=== PATIENT | male | born 1940 | race Caucasian/White ===

== ENCOUNTER 2021-02-17 12:51 | Inpatient (IN) | payer OTHER ==
[2021-02-17 13:51] LABS: BASO % 0.7 % (0-2.0); EOS % 2.5 % (0-4.5); HEMATOCRIT 23.3 % (35.4-49); LYMPH % 22.8 % (8-40); MCH 33.7 pg (25.7-33.7); MCHC 34.2 g/dl (32.0-35.9); MEAN CELL VOLUME 98.5 fl (80-96); MEAN PLT VOLUME 8.7 fl (7.5-11.1); MONO % 12.1 % (3.8-10.2); NEUT % 61.9 % (42.8-82.8); PLATELET COUNT 135 10^3/uL (134-434); RBC 2.37 M/mm3 (4.00-5.60); WHITE BLOOD COUNT 4.1 K/mm3 (4.0-10.0)
[2021-02-17 13:58] LABS: INR 0.94 (0.83-1.09); PROTHROMBIN TIME (PATIENT) 11.4 SEC (9.7-13.0)
[2021-02-17 14:01] LABS: ACTIVATED PTT 34.6 SECONDS (25.2-36.5)
[2021-02-17 14:13] LABS: CHLORIDE 107 mmol/L (98-107); SODIUM 136 mmol/L (136-145)
[2021-02-17 14:15] LABS: CALCIUM 8.6 mg/dL (8.5-10.1)
[2021-02-17 14:17] LABS: ALBUMIN 3.1 g/dl (3.4-5.0); BLOOD UREA NITROGEN 53.2 mg/dL (7-18); CO2 24 mmol/L (21-32)
[2021-02-17 14:19] LABS: CREATININE 1.6 mg/dL (0.55-1.3); GLUCOSE,RANDOM 84 mg/dL (74-106); SGOT/AST 26 U/L (15-37); SGPT/ALT 26 U/L (13-61)
[2021-02-17 14:20] LABS: BILIRUBIN,TOTAL 0.4 mg/dL (0.2-1)
[2021-02-17 14:21] LABS: TOT PROT 7.4 g/dl (6.4-8.2)
[2021-02-17 14:22] LABS: ALK PHOS 64 U/L (45-117)
[2021-02-17 14:26] LABS: ANION GAP 5 MMOL/L (8-16)
[2021-02-17] MEDS ORDERED: INSULIN REGULAR HUMAN 100 UNITS/ML *VIAL IVPUSH ONE (14:30)
[2021-02-17] MEDS ORDERED: CALCIUM GLUCONATE 10% - 1,000 MG/10 ML VIAL IVPUSH ONE (14:31)
[2021-02-17] MEDS ORDERED: DEXTROSE 50%-WATER - 25 GM/50 ML VIAL IVPUSH ONE ×2 (14:32→16:53)
[2021-02-17] MEDS ORDERED: SODIUM CHLORIDE 0.9% 1000 ML INFUS.BAG IV ONE (14:44)
[2021-02-17] MEDS ORDERED: DEXTROSE 50%-WATER 25 GM/50 ML DISP.SYRIN ONE ×2 (15:15→17:22)
[2021-02-17] MEDS: DEXTROSE 5%-0.45% SALINE 1,000 ML IV SCH (16:43)
[2021-02-17 18:45] LABS: HEMATOCRIT 24.1 % (35.4-49); HEMOGLOBIN 8.1 GM/dL (11.7-16.9); MCH 33.2 pg (25.7-33.7); MCHC 33.5 g/dl (32.0-35.9); MEAN CELL VOLUME 99.3 fl (80-96); MEAN PLT VOLUME 8.3 fl (7.5-11.1); PLATELET COUNT 122 10^3/uL (134-434); RBC 2.43 M/mm3 (4.00-5.60); RDW 16.8 % (11.9-15.9); WHITE BLOOD COUNT 6.1 K/mm3 (4.0-10.0)
[2021-02-17 20:33] LABS: BLOOD UREA NITROGEN 52.1 mg/dL (7-18); CALCIUM 8.2 mg/dL (8.5-10.1)
[2021-02-17 20:36] LABS: CREATININE 1.5 mg/dL (0.55-1.3)
[2021-02-17] MEDS ORDERED: ATORVASTATIN CA 40 MG TABLET (FP) ONE (22:42)
[2021-02-17] MEDS: ATORVASTATIN CA 40 MG TABLET (FP) PO SCH (22:45)
[2021-02-18 05:51] LABS: BASO % 0.8 % (0-2.0); EOS % 5.3 % (0-4.5); HEMATOCRIT 25.7 % (35.4-49); HEMOGLOBIN 8.8 GM/dL (11.7-16.9); LYMPH % 33.3 % (8-40); MCH 33.6 pg (25.7-33.7); MCHC 34.1 g/dl (32.0-35.9); MEAN CELL VOLUME 98.5 fl (80-96); MEAN PLT VOLUME 8.5 fl (7.5-11.1); MONO % 13.6 % (3.8-10.2); PLATELET COUNT 136 10^3/uL (134-434); RBC 2.61 M/mm3 (4.00-5.60); WHITE BLOOD COUNT 3.7 K/mm3 (4.0-10.0)
[2021-02-18 06:14] LABS: BLOOD UREA NITROGEN 38.8 mg/dL (7-18); CALCIUM 8.7 mg/dL (8.5-10.1)
[2021-02-18 06:15] LABS: MAGNESIUM 1.7 mg/dL (1.8-2.4)
[2021-02-18 06:18] LABS: CREATININE 1.3 mg/dL (0.55-1.3)
[2021-02-18 06:19] LABS: BILIRUBIN,TOTAL 0.6 mg/dL (0.2-1); TOT PROT 7.2 g/dl (6.4-8.2)
[2021-02-18 06:23] LABS: N-TERMINAL BNP 8120.3 pg/ml (5-450)
[2021-02-18] MEDS ORDERED: ATENOLOL 25 MG TABLET (FP) ONE (10:25)
[2021-02-18] MEDS: ATENOLOL 25 MG TABLET (FP) PO SCH (10:39)
[2021-02-18] MEDS ORDERED: SODIUM ZIRCONIUM CYCLOSILICATE (LOKELMA) 5 GM PACKET PO SCH (15:15)
[2021-02-18] MEDS: ATORVASTATIN CA 40 MG TABLET (FP) PO SCH (21:21)
[2021-02-18] MEDS: DEXTROSE 5%-0.45% SALINE 1,000 ML IV SCH (21:23)
[2021-02-18 22:05] VITALS: BMI 19.6
[2021-02-19] MEDS: ATENOLOL 25 MG TABLET (FP) PO SCH (09:34)
[2021-02-19 09:52] LABS: BASO % 1.1 % (0-2.0); EOS % 7.4 % (0-4.5); HEMATOCRIT 25.6 % (35.4-49); HEMOGLOBIN 8.6 GM/dL (11.7-16.9); LYMPH % 28.7 % (8-40); MCH 33.6 pg (25.7-33.7); MCHC 33.7 g/dl (32.0-35.9); MEAN CELL VOLUME 99.8 fl (80-96); MEAN PLT VOLUME 8.5 fl (7.5-11.1); MONO % 11.4 % (3.8-10.2); NEUT % 51.4 % (42.8-82.8); PLATELET COUNT 129 10^3/uL (134-434); RBC 2.56 M/mm3 (4.00-5.60); WHITE BLOOD COUNT 4.3 K/mm3 (4.0-10.0)
[2021-02-19 10:25] LABS: ALBUMIN 2.9 g/dl (3.4-5.0); BLOOD UREA NITROGEN 32.4 mg/dL (7-18)
[2021-02-19 10:26] LABS: CALCIUM 8.7 mg/dL (8.5-10.1)
[2021-02-19 10:30] LABS: CREATININE 1.3 mg/dL (0.55-1.3)
[2021-02-19 10:31] LABS: BILIRUBIN,TOTAL 0.7 mg/dL (0.2-1); TOT PROT 6.8 g/dl (6.4-8.2)
[2021-02-19] MEDS: DEXTROSE 5%-0.45% SALINE 1,000 ML IV SCH (21:51)
[2021-02-19] MEDS: ATORVASTATIN CA 40 MG TABLET (FP) PO SCH (21:51)
[2021-02-20] MEDS: DEXTROSE 5%-0.45% SALINE 1,000 ML IV SCH (01:54)
[2021-02-20 07:32] LABS: BASO % 0.8 % (0-2.0); EOS % 5.9 % (0-4.5); HEMATOCRIT 23.5 % (35.4-49); HEMOGLOBIN 8.2 GM/dL (11.7-16.9); LYMPH % 26.5 % (8-40); MCH 33.8 pg (25.7-33.7); MCHC 34.8 g/dl (32.0-35.9); MEAN CELL VOLUME 97.2 fl (80-96); MEAN PLT VOLUME 8.5 fl (7.5-11.1); MONO % 13.1 % (3.8-10.2); NEUT % 53.7 % (42.8-82.8); PLATELET COUNT 132 10^3/uL (134-434); RBC 2.42 M/mm3 (4.00-5.60); RDW 16.6 % (11.9-15.9); WHITE BLOOD COUNT 3.8 K/mm3 (4.0-10.0)
[2021-02-20] MEDS: ATENOLOL 25 MG TABLET (FP) PO SCH (09:58)
[2021-02-20 11:07] LABS: CALCIUM 8.5 mg/dL (8.5-10.1)
[2021-02-20 11:08] LABS: BLOOD UREA NITROGEN 36.9 mg/dL (7-18)
[2021-02-20 11:12] LABS: CREATININE 1.3 mg/dL (0.55-1.3)
[2021-02-20] MEDS: SODIUM ZIRCONIUM CYCLOSILICATE (LOKELMA) 5 GM PACKET PO SCH (11:30)
[2021-02-20] MEDS: ATORVASTATIN CA 40 MG TABLET (FP) PO SCH (21:43)
[2021-02-21 07:33] LABS: BASO % 0.8 % (0-2.0); EOS % 5.9 % (0-4.5); HEMATOCRIT 22.9 % (35.4-49); HEMOGLOBIN 7.7 GM/dL (11.7-16.9); LYMPH % 31.3 % (8-40); MCH 32.9 pg (25.7-33.7); MCHC 33.6 g/dl (32.0-35.9); MEAN CELL VOLUME 97.7 fl (80-96); MEAN PLT VOLUME 8.3 fl (7.5-11.1); MONO % 14.7 % (3.8-10.2); NEUT % 47.3 % (42.8-82.8); PLATELET COUNT 122 10^3/uL (134-434); RBC 2.34 M/mm3 (4.00-5.60); RDW 16.5 % (11.9-15.9)
[2021-02-21 07:53] LABS: ALBUMIN 2.7 g/dl (3.4-5.0); BLOOD UREA NITROGEN 42.4 mg/dL (7-18); CALCIUM 8.3 mg/dL (8.5-10.1)
[2021-02-21 07:56] LABS: CREATININE 1.4 mg/dL (0.55-1.3)
[2021-02-21 08:01] LABS: BILIRUBIN,TOTAL 0.4 mg/dL (0.2-1); TOT PROT 6.2 g/dl (6.4-8.2)
[2021-02-21] MEDS: ATENOLOL 25 MG TABLET (FP) PO SCH (12:46)
[2021-02-21] MEDS: SODIUM ZIRCONIUM CYCLOSILICATE (LOKELMA) 5 GM PACKET PO SCH (12:56)
[2021-02-21] MEDS ORDERED: PT OWN MED DRAWER 7, Y5N ONE (17:37)
[2021-02-21] MEDS: DEXTROSE 5%-0.45% SALINE 1,000 ML IV SCH (18:14)
[2021-02-21] MEDS: ATORVASTATIN CA 40 MG TABLET (FP) PO SCH (21:27)
[2021-02-22 08:11] LABS: CARCINOEMBRYONIC ANTIGEN 3.1 ng/mL (0.0-4.7)
[2021-02-22 08:11] LABS: BASO % 0.9 % (0-2.0); EOS % 7.1 % (0-4.5); HEMATOCRIT 27.2 % (35.4-49); HEMOGLOBIN 9.4 GM/dL (11.7-16.9); MCH 33.1 pg (25.7-33.7); MCHC 34.5 g/dl (32.0-35.9); MEAN CELL VOLUME 95.9 fl (80-96); MEAN PLT VOLUME 8.6 fl (7.5-11.1); MONO % 13.5 % (3.8-10.2); NEUT % 48.5 % (42.8-82.8); PLATELET COUNT 137 10^3/uL (134-434); RBC 2.84 M/mm3 (4.00-5.60); RDW 17.9 % (11.9-15.9)
[2021-02-22 08:23] LABS: ALBUMIN 2.8 g/dl (3.4-5.0); BLOOD UREA NITROGEN 39.3 mg/dL (7-18); CALCIUM 8.4 mg/dL (8.5-10.1)
[2021-02-22 08:26] LABS: CREATININE 1.2 mg/dL (0.55-1.3)
[2021-02-22 08:28] LABS: BILIRUBIN,TOTAL 0.7 mg/dL (0.2-1); TOT PROT 6.6 g/dl (6.4-8.2)
[2021-02-22] MEDS: SODIUM ZIRCONIUM CYCLOSILICATE (LOKELMA) 5 GM PACKET PO SCH ×2 (10:34→13:56)
[2021-02-22] MEDS: ATENOLOL 25 MG TABLET (FP) PO SCH (13:55)
[2021-02-22] MEDS ORDERED: POLYETHYLENE GLYCOL 3350 119 GM BTL PO SCH (14:00)
[2021-02-22] MEDS: DEXTROSE 5%-0.45% SALINE 1,000 ML IV SCH (15:07)
[2021-02-22] MEDS: POLYETHYLENE GLYCOL (HEALTHYLAX) 3350 17 GM PACKET PO SCH ×2 (15:44→22:22)
[2021-02-22] MEDS: ATORVASTATIN CA 40 MG TABLET (FP) PO SCH (22:24)
[2021-02-23] MEDS: DEXTROSE 5%-0.45% SALINE 1,000 ML IV SCH ×2 (03:51→17:40)
[2021-02-23] MEDS: POLYETHYLENE GLYCOL (HEALTHYLAX) 3350 17 GM PACKET PO SCH ×5 (05:54→21:52)
[2021-02-23] MEDS ORDERED: MAGNESIUM CITRATE 300 ML BOTTLE PO ONE (09:00)
[2021-02-23] MEDS: SODIUM ZIRCONIUM CYCLOSILICATE (LOKELMA) 5 GM PACKET PO SCH (09:08)
[2021-02-23] MEDS: ATENOLOL 25 MG TABLET (FP) PO SCH (09:08)
[2021-02-23] MEDS ORDERED: BISACODYL 5 MG TABLET.DR (FP) PO ONE (18:00)
[2021-02-23] MEDS: ATORVASTATIN CA 40 MG TABLET (FP) PO SCH (21:52)
[2021-02-24] MEDS: POLYETHYLENE GLYCOL (HEALTHYLAX) 3350 17 GM PACKET PO SCH ×3 (05:55→22:29)
[2021-02-24 08:34] LABS: BASO % 0.6 % (0-2.0); EOS % 5.9 % (0-4.5); HEMATOCRIT 28.2 % (35.4-49); HEMOGLOBIN 9.7 GM/dL (11.7-16.9); LYMPH % 25.4 % (8-40); MCH 33.1 pg (25.7-33.7); MCHC 34.5 g/dl (32.0-35.9); MEAN CELL VOLUME 95.9 fl (80-96); MEAN PLT VOLUME 8.7 fl (7.5-11.1); MONO % 13.1 % (3.8-10.2); PLATELET COUNT 129 10^3/uL (134-434); RBC 2.94 M/mm3 (4.00-5.60); RDW 17.3 % (11.9-15.9); WHITE BLOOD COUNT 4.2 K/mm3 (4.0-10.0)
[2021-02-24 08:47] LABS: CALCIUM 8.2 mg/dL (8.5-10.1)
[2021-02-24 08:49] LABS: ALBUMIN 2.8 g/dl (3.4-5.0); BLOOD UREA NITROGEN 26.3 mg/dL (7-18)
[2021-02-24 08:52] LABS: CREATININE 1.1 mg/dL (0.55-1.3)
[2021-02-24 08:53] LABS: BILIRUBIN,TOTAL 0.4 mg/dL (0.2-1); TOT PROT 6.5 g/dl (6.4-8.2)
[2021-02-24] MEDS ORDERED: PEG 3350/NA SULF BICARB CL/KCL 4000 ML SOLN.RECON PO ONE (09:00)
[2021-02-24] MEDS: ATENOLOL 25 MG TABLET (FP) PO SCH (09:26)
[2021-02-24] MEDS: SODIUM ZIRCONIUM CYCLOSILICATE (LOKELMA) 5 GM PACKET PO SCH (09:28)
[2021-02-24] MEDS: DEXTROSE 5%-0.45% SALINE 1,000 ML IV SCH (14:53)
[2021-02-24] MEDS ORDERED: MAGNESIUM CITRATE 300 ML BOTTLE PO ONE (18:00)
[2021-02-24] MEDS ORDERED: BISACODYL 5 MG TABLET.DR (FP) PO ONE (20:00)
[2021-02-24] MEDS: ATORVASTATIN CA 40 MG TABLET (FP) PO SCH (22:29)
[2021-02-25] MEDS ORDERED: MAGNESIUM CITRATE 300 ML BOTTLE PO ONE (02:00)
[2021-02-25] MEDS: POLYETHYLENE GLYCOL (HEALTHYLAX) 3350 17 GM PACKET PO SCH ×3 (05:40→22:23)
[2021-02-25] MEDS: SODIUM ZIRCONIUM CYCLOSILICATE (LOKELMA) 5 GM PACKET PO SCH (09:13)
[2021-02-25] MEDS: ATENOLOL 25 MG TABLET (FP) PO SCH (09:13)
[2021-02-25] MEDS: DEXTROSE 5%-0.45% SALINE 1,000 ML IV SCH (15:20)
[2021-02-25] MEDS: ATORVASTATIN CA 40 MG TABLET (FP) PO SCH (22:24)
[2021-02-26] MEDS: POLYETHYLENE GLYCOL (HEALTHYLAX) 3350 17 GM PACKET PO SCH ×3 (06:06→22:31)
[2021-02-26 08:25] LABS: HEMATOCRIT 29.7 % (35.4-49); HEMOGLOBIN 10.4 GM/dL (11.7-16.9); MCH 33.5 pg (25.7-33.7); MCHC 34.9 g/dl (32.0-35.9); MEAN CELL VOLUME 95.9 fl (80-96); MEAN PLT VOLUME 8.7 fl (7.5-11.1); PLATELET COUNT 139 10^3/uL (134-434); RDW 16.9 % (11.9-15.9); WHITE BLOOD COUNT 5.2 K/mm3 (4.0-10.0)
[2021-02-26] MEDS: ATENOLOL 25 MG TABLET (FP) PO SCH (09:12)
[2021-02-26] MEDS: SODIUM ZIRCONIUM CYCLOSILICATE (LOKELMA) 5 GM PACKET PO SCH (09:12)
[2021-02-26] MEDS: DEXTROSE 5%-0.45% SALINE 1,000 ML IV SCH (15:44)
[2021-02-26] MEDS: ATORVASTATIN CA 40 MG TABLET (FP) PO SCH (22:32)
[2021-02-27] MEDS: POLYETHYLENE GLYCOL (HEALTHYLAX) 3350 17 GM PACKET PO SCH ×2 (06:00→13:41)
[2021-02-27] MEDS: ATENOLOL 25 MG TABLET (FP) PO SCH (09:18)
[2021-02-27] MEDS: SODIUM ZIRCONIUM CYCLOSILICATE (LOKELMA) 5 GM PACKET PO SCH (09:18)
[2021-02-27 12:40] LABS: BLOOD UREA NITROGEN 24.3 mg/dL (7-18); CALCIUM 8.7 mg/dL (8.5-10.1)
[2021-02-27 12:44] LABS: CREATININE 1.1 mg/dL (0.55-1.3)
[2021-02-27 19:16] VITALS: TEMP 98.2
[2021-02-27 20:24] VITALS: BP 105/42; PULSE 59
== END 2021-02-27 22:13 | DRG 378 ==
LOC: JER 12:51 → JERBED 14:32 → J4W 02-18 20:56
PROVIDERS: ADMIT Family Medicine; ATTEND Family Medicine
PROC: 30233N1 Transfusion of Nonautologous Red Blood Cells into Peripheral Vein, Percutaneous Approach (ICD-10-PCS; 2021-02-21)
PROC: 0DB98ZX Excision of Duodenum, Via Natural or Artificial Opening Endoscopic, Diagnostic (ICD-10-PCS; 2021-02-22)
PROC: 0DB68ZX Excision of Stomach, Via Natural or Artificial Opening Endoscopic, Diagnostic (ICD-10-PCS; 2021-02-22)
PROC: 0DB68ZX Excision of Stomach, Via Natural or Artificial Opening Endoscopic, Diagnostic (ICD-10-PCS; principal; 2021-02-22 12:33)
PROC: 0DBN8ZX Excision of Sigmoid Colon, Via Natural or Artificial Opening Endoscopic, Diagnostic (ICD-10-PCS; 2021-02-25)
DX: K92.2 Gastrointestinal hemorrhage, unspecified (principal); K63.3 Ulcer of intestine; N17.9 Acute kidney failure, unspecified; I13.0 Hypertensive heart and chronic kidney disease with heart failure and stage 1 through stage 4 chronic kidney disease, or unspecified chronic kidney disease; K44.9 Diaphragmatic hernia without obstruction or gangrene; K64.9 Unspecified hemorrhoids; I48.0 Paroxysmal atrial fibrillation; K55.20 Angiodysplasia of colon without hemorrhage; K29.00 Acute gastritis without bleeding; F03.90 Unspecified dementia, unspecified severity, without behavioral disturbance, psychotic disturbance, mood disturbance, and anxiety; E87.5 Hyperkalemia; K22.2 Esophageal obstruction; E11.22 Type 2 diabetes mellitus with diabetic chronic kidney disease; N18.9 Chronic kidney disease, unspecified; I50.9 Heart failure, unspecified; E78.5 Hyperlipidemia, unspecified; F31.9 Bipolar disorder, unspecified; F20.9 Schizophrenia, unspecified; I25.10 Atherosclerotic heart disease of native coronary artery without angina pectoris; D63.8 Anemia in other chronic diseases classified elsewhere; K57.90 Diverticulosis of intestine, part unspecified, without perforation or abscess without bleeding; I35.0 Nonrheumatic aortic (valve) stenosis; D50.9 Iron deficiency anemia, unspecified; Z95.810 Presence of automatic (implantable) cardiac defibrillator; Z95.5 Presence of coronary angioplasty implant and graft; Z86.73 Personal history of transient ischemic attack (TIA), and cerebral infarction without residual deficits; Z90.49 Acquired absence of other specified parts of digestive tract; Z85.07 Personal history of malignant neoplasm of pancreas
CPT/HCPCS: 36415; 36430; 71045-TC-FY; 76700-TC; 80048; 80053; 82105; 82272; 82378; 82550; 82607; 82746; 82962; 83036; 83540; 83550; 83735; 83880; 84443; 84484; 85025; 85027; 85045; 85610; 85730; 86301; 86850; 86900; 86901; 86922; 88305-TC; 93005; 93010; 99285-25; C9803; P9058; U0003; U0005

== ENCOUNTER 2021-03-10 16:02 | Inpatient (IN) | payer OTHER ==
[2021-03-10 17:42] LABS: HEMATOCRIT 25.9 % (35.4-49); HEMOGLOBIN 8.8 GM/dL (11.7-16.9); MCH 32.8 pg (25.7-33.7); MCHC 33.9 g/dl (32.0-35.9); MEAN CELL VOLUME 96.8 fl (80-96); MEAN PLT VOLUME 8.3 fl (7.5-11.1); PLATELET COUNT 136 10^3/uL (134-434); RBC 2.67 M/mm3 (4.00-5.60); RDW 15.2 % (11.9-15.9); RETICULOCYTES 0.54 % (0.5-1.5); WHITE BLOOD COUNT 3.5 K/mm3 (4.0-10.0)
[2021-03-10 17:47] LABS: INR 1.16 (0.83-1.09)
[2021-03-10 17:50] LABS: ACTIVATED PTT 39.3 SECONDS (25.2-36.5)
[2021-03-10 17:58] LABS: CALCIUM 9.1 mg/dL (8.5-10.1)
[2021-03-10 17:59] LABS: ALBUMIN 3.2 g/dl (3.4-5.0)
[2021-03-10 18:02] LABS: CREATININE 1.7 mg/dL (0.55-1.3)
[2021-03-10 18:03] LABS: BILIRUBIN,TOTAL 0.5 mg/dL (0.2-1); TOT PROT 7.2 g/dl (6.4-8.2)
[2021-03-10 18:05] LABS: ANISOCYTOSIS 0; HELMET CELLS 0; HOWELL-JOLLY BODIES 0; MACROCYTOSIS 0; OVALOCYTE 0; PLATELET ESTIMATE DECREASED; ROULEAU 0; SICKELED CELLS 0; TARGET CELLS 0; TEAR DROP CELLS 0; TOXIC GRANULATION 0
[2021-03-10 18:22] LABS: BLOOD UREA NITROGEN 55.3 mg/dL (7-18)
[2021-03-10] MEDS ORDERED: CALCIUM GLUCONATE 10% - 1,000 MG/10 ML VIAL IVPB ONE (19:49)
[2021-03-10] MEDS ORDERED: INSULIN REGULAR HUMAN 100 UNITS/ML *VIAL IVPUSH ONE (19:50)
[2021-03-10] MEDS ORDERED: DEXTROSE 50%-WATER - 25 GM/50 ML VIAL IVPUSH ONE (19:51)
[2021-03-10] MEDS ORDERED: DEXTROSE 50%-WATER 25 GM/50 ML DISP.SYRIN ONE (20:25)
[2021-03-10] MEDS ORDERED: CALCIUM GLUCONATE 10% - 1,000 MG/10 ML VIAL ONE (20:25)
[2021-03-10] MEDS ORDERED: MELATONIN 5 MG TABLETS PO ONE (22:41)
[2021-03-10] MEDS ORDERED: ATORVASTATIN CA 20 MG TABLET (FP) PO ONE (22:42)
[2021-03-10] MEDS ORDERED: ATORVASTATIN CA 20 MG TABLET (FP) ONE (22:59)
[2021-03-10] MEDS ORDERED: MELATONIN 5 MG TABLETS ONE (22:59)
[2021-03-10] MEDS: INSULIN SLIDING SCALE (NOVOLOG) 1 VIAL SQ SCH (23:17)
[2021-03-11] MEDS ORDERED: ACETAMINOPHEN 325 MG TABLET (FP) PO PRN (02:30)
[2021-03-11] MEDS ORDERED: MIRTAZAPINE 15 MG TABLET (FP) ONE (03:55)
[2021-03-11] MEDS ORDERED: DIVALPROEX SODIUM 125 MG TABLET E.C. ONE ×2 (03:55→08:50)
[2021-03-11] MEDS: DIVALPROEX SODIUM 250 MG TABLET E.C. PO SCH ×3 (04:00→23:54)
[2021-03-11] MEDS: MIRTAZAPINE 15 MG TABLET (FP) PO SCH ×2 (04:01→23:32)
[2021-03-11 07:42] LABS: BASO % 0.9 % (0-2.0); EOS % 1.9 % (0-4.5); HEMATOCRIT 28.9 % (35.4-49); HEMOGLOBIN 9.9 GM/dL (11.7-16.9); LYMPH % 27.1 % (8-40); MCH 32.7 pg (25.7-33.7); MCHC 34.4 g/dl (32.0-35.9); MEAN CELL VOLUME 95.1 fl (80-96); MEAN PLT VOLUME 8.3 fl (7.5-11.1); MONO % 12.6 % (3.8-10.2); NEUT % 57.5 % (42.8-82.8); PLATELET COUNT 140 10^3/uL (134-434); RBC 3.04 M/mm3 (4.00-5.60); RDW 16.9 % (11.9-15.9); WHITE BLOOD COUNT 4.8 K/mm3 (4.0-10.0)
[2021-03-11 08:03] LABS: ALBUMIN 3.1 g/dl (3.4-5.0); BLOOD UREA NITROGEN 53.2 mg/dL (7-18); CALCIUM 9.6 mg/dL (8.5-10.1)
[2021-03-11 08:06] LABS: CREATININE 1.6 mg/dL (0.55-1.3)
[2021-03-11 08:08] LABS: BILIRUBIN,TOTAL 1.5 mg/dL (0.2-1)
[2021-03-11] MEDS ORDERED: ASCORBIC ACID 500 MG TABLET (FP) ONE (08:49)
[2021-03-11] MEDS ORDERED: SODIUM ZIRCONIUM CYCLOSILICATE (LOKELMA) 5 GM PACKET ONE (08:50)
[2021-03-11] MEDS ORDERED: FERROUS SO4 325 MG TABLET (FP) ONE (08:50)
[2021-03-11] MEDS ORDERED: PANTOPRAZOLE 40 MG TABLET ONE (08:50)
[2021-03-11] MEDS: INSULIN SLIDING SCALE (NOVOLOG) 1 VIAL SQ SCH ×4 (09:08→23:53)
[2021-03-11] MEDS: SODIUM ZIRCONIUM CYCLOSILICATE (LOKELMA) 5 GM PACKET PO SCH (09:09)
[2021-03-11] MEDS: CYANOCOBALAMIN 1,000 MCG TABLET (FP) PO SCH (09:09)
[2021-03-11] MEDS: FERROUS SO4 325 MG TABLET (FP) PO SCH (09:09)
[2021-03-11] MEDS: ASCORBIC ACID 500 MG TABLET (FP) PO SCH (09:09)
[2021-03-11] MEDS: PANTOPRAZOLE 40 MG TABLET PO SCH (09:09)
[2021-03-11] MEDS ORDERED: SUCRALFATE 1 GM/10 ML UNIT DOSE CUPS NR SCH (10:00)
[2021-03-11] MEDS ORDERED: SACUBITRIL/VALSARTAN 24 MG-26 MG TABLET PO SCH (10:00)
[2021-03-11] MEDS: SUCRALFATE 1 GM/10 ML UNIT DOSE CUPS NR SCH ×2 (10:41→23:54)
[2021-03-11] MEDS ORDERED: INSULIN (NOVOLOG) ASPART 100 UNITS/ML 10ML VIAL ONE (11:49)
[2021-03-11 17:27] VITALS: BMI 19.3
[2021-03-11] MEDS ORDERED: PT OWN MED DRAWER 7, Y5N ONE (23:21)
[2021-03-11] MEDS: QUEtiapine FUMARATE 25 MG TABLET PO SCH (23:33)
[2021-03-11] MEDS: POLYETHYLENE GLYCOL (HEALTHYLAX) 3350 17 GM PACKET PO SCH (23:54)
[2021-03-11] MEDS: ATORVASTATIN CA 20 MG TABLET (FP) PO SCH (23:55)
[2021-03-12] MEDS: MELATONIN 5 MG TABLETS PO SCH ×2 (00:30→23:00)
[2021-03-12] MEDS: INSULIN SLIDING SCALE (NOVOLOG) 1 VIAL SQ SCH ×4 (06:34→23:22)
[2021-03-12 07:33] LABS: BASO % 1.3 % (0-2.0); EOS % 3.3 % (0-4.5); HEMATOCRIT 27.5 % (35.4-49); HEMOGLOBIN 9.8 GM/dL (11.7-16.9); LYMPH % 28.2 % (8-40); MCH 33.3 pg (25.7-33.7); MCHC 35.6 g/dl (32.0-35.9); MEAN CELL VOLUME 93.6 fl (80-96); NEUT % 55.2 % (42.8-82.8); PLATELET COUNT 145 10^3/uL (134-434); RBC 2.94 M/mm3 (4.00-5.60); RDW 15.8 % (11.9-15.9); WHITE BLOOD COUNT 4.4 K/mm3 (4.0-10.0)
[2021-03-12 07:54] LABS: CALCIUM 9.3 mg/dL (8.5-10.1)
[2021-03-12 07:55] LABS: ALBUMIN 3.2 g/dl (3.4-5.0); BLOOD UREA NITROGEN 39.2 mg/dL (7-18)
[2021-03-12 07:58] LABS: BILIRUBIN,TOTAL 1.3 mg/dL (0.2-1); CREATININE 1.5 mg/dL (0.55-1.3)
[2021-03-12] MEDS: CYANOCOBALAMIN 1,000 MCG TABLET (FP) PO SCH (09:06)
[2021-03-12] MEDS: SODIUM ZIRCONIUM CYCLOSILICATE (LOKELMA) 5 GM PACKET PO SCH (09:06)
[2021-03-12] MEDS: PANTOPRAZOLE 40 MG TABLET PO SCH (09:06)
[2021-03-12] MEDS: FERROUS SO4 325 MG TABLET (FP) PO SCH (09:06)
[2021-03-12] MEDS: ASCORBIC ACID 500 MG TABLET (FP) PO SCH (09:06)
[2021-03-12] MEDS: DIVALPROEX SODIUM 250 MG TABLET E.C. PO SCH ×2 (09:06→23:00)
[2021-03-12] MEDS: SUCRALFATE 1 GM/10 ML UNIT DOSE CUPS NR SCH ×2 (09:06→23:07)
[2021-03-12] MEDS ORDERED: SODIUM CHLORIDE 0.45% 1,000 ML IV SCH (09:30)
[2021-03-12] MEDS: QUEtiapine FUMARATE 25 MG TABLET PO SCH (22:59)
[2021-03-12] MEDS: MIRTAZAPINE 15 MG TABLET (FP) PO SCH (22:59)
[2021-03-12] MEDS: ATORVASTATIN CA 20 MG TABLET (FP) PO SCH (22:59)
[2021-03-12] MEDS: POLYETHYLENE GLYCOL (HEALTHYLAX) 3350 17 GM PACKET PO SCH (23:00)
[2021-03-13] MEDS: INSULIN SLIDING SCALE (NOVOLOG) 1 VIAL SQ SCH ×4 (06:53→23:20)
[2021-03-13] MEDS: FERROUS SO4 325 MG TABLET (FP) PO SCH (09:16)
[2021-03-13] MEDS: SUCRALFATE 1 GM/10 ML UNIT DOSE CUPS NR SCH ×2 (09:16→23:17)
[2021-03-13] MEDS: SODIUM ZIRCONIUM CYCLOSILICATE (LOKELMA) 5 GM PACKET PO SCH (09:16)
[2021-03-13] MEDS: ASCORBIC ACID 500 MG TABLET (FP) PO SCH (09:16)
[2021-03-13] MEDS: CYANOCOBALAMIN 1,000 MCG TABLET (FP) PO SCH (09:16)
[2021-03-13] MEDS ORDERED: IRON SUCROSE INJECTION 200 MG in SODIUM CHLORIDE 90 ML IVPB ONE (10:00)
[2021-03-13 10:43] LABS: BASO % 0.9 % (0-2.0); EOS % 5.1 % (0-4.5); HEMATOCRIT 27.1 % (35.4-49); HEMOGLOBIN 9.1 GM/dL (11.7-16.9); LYMPH % 34.3 % (8-40); MCH 32.2 pg (25.7-33.7); MCHC 33.5 g/dl (32.0-35.9); MEAN CELL VOLUME 95.9 fl (80-96); MEAN PLT VOLUME 7.6 fl (7.5-11.1); MONO % 14.1 % (3.8-10.2); NEUT % 45.6 % (42.8-82.8); PLATELET COUNT 133 10^3/uL (134-434); RBC 2.83 M/mm3 (4.00-5.60); RDW 16.1 % (11.9-15.9); WHITE BLOOD COUNT 3.4 K/mm3 (4.0-10.0)
[2021-03-13] MEDS: DIVALPROEX SODIUM 250 MG TABLET E.C. PO SCH ×2 (10:51→23:18)
[2021-03-13 11:23] LABS: ALBUMIN 2.8 g/dl (3.4-5.0); BILIRUBIN,TOTAL 0.5 mg/dL (0.2-1); CALCIUM 9.1 mg/dL (8.5-10.1); CREATININE 1.5 mg/dL (0.55-1.3); TOT PROT 6.3 g/dl (6.4-8.2)
[2021-03-13] MEDS ORDERED: SODIUM CHLORIDE 0.45% 1,000 ML IV SCH (12:45)
[2021-03-13] MEDS ORDERED: SODIUM ZIRCONIUM CYCLOSILICATE (LOKELMA) 5 GM PACKET PO ONE (13:00)
[2021-03-13] MEDS: MIRTAZAPINE 15 MG TABLET (FP) PO SCH (23:17)
[2021-03-13] MEDS: QUEtiapine FUMARATE 25 MG TABLET PO SCH (23:17)
[2021-03-13] MEDS: ATORVASTATIN CA 20 MG TABLET (FP) PO SCH (23:18)
[2021-03-13] MEDS: MELATONIN 5 MG TABLETS PO SCH (23:18)
[2021-03-13] MEDS: POLYETHYLENE GLYCOL (HEALTHYLAX) 3350 17 GM PACKET PO SCH (23:19)
[2021-03-14] MEDS: INSULIN SLIDING SCALE (NOVOLOG) 1 VIAL SQ SCH ×4 (07:02→22:46)
[2021-03-14] MEDS: ASCORBIC ACID 500 MG TABLET (FP) PO SCH (09:38)
[2021-03-14] MEDS: DIVALPROEX SODIUM 250 MG TABLET E.C. PO SCH ×2 (09:38→22:27)
[2021-03-14] MEDS: FERROUS SO4 325 MG TABLET (FP) PO SCH (09:38)
[2021-03-14] MEDS: CYANOCOBALAMIN 1,000 MCG TABLET (FP) PO SCH (09:38)
[2021-03-14] MEDS ORDERED: SODIUM ZIRCONIUM CYCLOSILICATE (LOKELMA) 5 GM PACKET PO SCH (10:00)
[2021-03-14] MEDS: SUCRALFATE 1 GM/10 ML UNIT DOSE CUPS NR SCH ×2 (12:37→22:47)
[2021-03-14] MEDS ORDERED: BISACODYL 5 MG TABLET.DR (FP) PO ONE ×2 (15:10→20:30)
[2021-03-14 15:20] LABS: BASO % 0.6 % (0-2.0); EOS % 3.9 % (0-4.5); HEMATOCRIT 28.5 % (35.4-49); HEMOGLOBIN 9.9 GM/dL (11.7-16.9); LYMPH % 28.5 % (8-40); MCH 32.4 pg (25.7-33.7); MCHC 34.8 g/dl (32.0-35.9); MEAN PLT VOLUME 7.8 fl (7.5-11.1); PLATELET COUNT 152 10^3/uL (134-434); RBC 3.06 M/mm3 (4.00-5.60); RDW 15.4 % (11.9-15.9); WHITE BLOOD COUNT 3.9 K/mm3 (4.0-10.0)
[2021-03-14 15:47] LABS: CALCIUM 9.1 mg/dL (8.5-10.1)
[2021-03-14 15:48] LABS: BLOOD UREA NITROGEN 23.4 mg/dL (7-18); CHLORIDE 106 mmol/L (98-107); CO2 31 mmol/L (21-32); GLUCOSE,RANDOM 89 mg/dL (74-106); SODIUM 141 mmol/L (136-145)
[2021-03-14 15:50] LABS: ANION GAP 3 MMOL/L (8-16); CREATININE 1.5 mg/dL (0.55-1.3)
[2021-03-14] MEDS ORDERED: DEXTROSE 50%-WATER - 25 GM/50 ML VIAL IVPUSH ONE ×3 (16:44→20:45)
[2021-03-14] MEDS ORDERED: CALCIUM GLUCONATE 10% - 1,000 MG/10 ML VIAL IVPB ONE ×2 (16:44→19:15)
[2021-03-14] MEDS ORDERED: INSULIN REGULAR HUMAN 100 UNITS/ML *VIAL IVPUSH ONE ×2 (16:44→19:15)
[2021-03-14] MEDS ORDERED: SODIUM BICARBONATE 8.4% 50 MEQ/50 ML VIAL IVPB ONE ×3 (16:44→21:00)
[2021-03-14] MEDS ORDERED: FUROSEMIDE 40 MG/4 ML INJECTABLE VIAL IVPUSH ONE ×2 (16:47→19:15)
[2021-03-14] MEDS ORDERED: SODIUM CHLORIDE 0.45% 1,000 ML IV SCH (16:47)
[2021-03-14] MEDS ORDERED: PEG 3350/NA SULF BICARB CL/KCL 4000 ML SOLN.RECON PO ONE (17:00)
[2021-03-14] MEDS ORDERED: INSULIN REGULAR HUMAN 100 UNITS/ML *VIAL SQ ONE (17:15)
[2021-03-14] MEDS: SODIUM ZIRCONIUM CYCLOSILICATE (LOKELMA) 5 GM PACKET PO SCH ×2 (20:03→22:46)
[2021-03-14 20:24] LABS: CHLORIDE 103 mmol/L (98-107); SODIUM 134 mmol/L (136-145)
[2021-03-14 20:27] LABS: BLOOD UREA NITROGEN 27.3 mg/dL (7-18); CALCIUM 8.8 mg/dL (8.5-10.1); CO2 28 mmol/L (21-32)
[2021-03-14 20:28] LABS: GLUCOSE,RANDOM 79 mg/dL (74-106)
[2021-03-14 20:30] LABS: CREATININE 1.6 mg/dL (0.55-1.3)
[2021-03-14 20:32] LABS: ANION GAP 4 MMOL/L (8-16)
[2021-03-14] MEDS: QUEtiapine FUMARATE 25 MG TABLET PO SCH (22:27)
[2021-03-14] MEDS: POLYETHYLENE GLYCOL (HEALTHYLAX) 3350 17 GM PACKET PO SCH (22:38)
[2021-03-14] MEDS: MELATONIN 5 MG TABLETS PO SCH (22:42)
[2021-03-14] MEDS: MIRTAZAPINE 15 MG TABLET (FP) PO SCH (22:42)
[2021-03-14] MEDS: ATORVASTATIN CA 20 MG TABLET (FP) PO SCH (22:47)
[2021-03-15] MEDS: INSULIN SLIDING SCALE (NOVOLOG) 1 VIAL SQ SCH ×5 (05:59→21:16)
[2021-03-15] MEDS ORDERED: ACETAMINOPHEN 325 MG TABLET (FP) PO PRN (06:00)
[2021-03-15] MEDS ORDERED: SODIUM CHLORIDE 0.45% 1,000 ML IV SCH (06:00)
[2021-03-15 08:54] LABS: EOS % 2.1 % (0-4.5); HEMATOCRIT 25.7 % (35.4-49); LYMPH % 35.9 % (8-40); MCH 32.7 pg (25.7-33.7); MCHC 35.1 g/dl (32.0-35.9); MEAN CELL VOLUME 93.2 fl (80-96); MEAN PLT VOLUME 7.8 fl (7.5-11.1); MONO % 11.1 % (3.8-10.2); NEUT % 49.9 % (42.8-82.8); PLATELET COUNT 136 10^3/uL (134-434); RBC 2.76 M/mm3 (4.00-5.60); RDW 15.1 % (11.9-15.9); WHITE BLOOD COUNT 4.5 K/mm3 (4.0-10.0)
[2021-03-15 08:57] LABS: INR 1.06 (0.83-1.09); PROTHROMBIN TIME (PATIENT) 12.4 SEC (9.7-13.0)
[2021-03-15] MEDS ORDERED: PT OWN MED DRAWER 7, Y5N ONE ×2 (09:09→09:53)
[2021-03-15 09:27] LABS: CALCIUM 8.8 mg/dL (8.5-10.1)
[2021-03-15 09:28] LABS: BLOOD UREA NITROGEN 22.8 mg/dL (7-18)
[2021-03-15 09:30] LABS: CREATININE 1.6 mg/dL (0.55-1.3)
[2021-03-15] MEDS: FERROUS SO4 325 MG TABLET (FP) PO SCH (09:43)
[2021-03-15] MEDS: CYANOCOBALAMIN 1,000 MCG TABLET (FP) PO SCH (09:44)
[2021-03-15] MEDS: DIVALPROEX SODIUM 250 MG TABLET E.C. PO SCH ×2 (09:44→21:08)
[2021-03-15] MEDS: SODIUM ZIRCONIUM CYCLOSILICATE (LOKELMA) 5 GM PACKET PO SCH (09:44)
[2021-03-15] MEDS: ASCORBIC ACID 500 MG TABLET (FP) PO SCH (09:45)
[2021-03-15] MEDS: SUCRALFATE 1 GM/10 ML UNIT DOSE CUPS NR SCH ×2 (09:53→23:30)
[2021-03-15] MEDS: SODIUM CHLORIDE 0.45% 1,000 ML IV SCH (10:30)
[2021-03-15] MEDS ORDERED: LIDOCAINE HCL 2% JELLY 10 ML CARTRIDGE ONE (14:09)
[2021-03-15] MEDS ORDERED: LIDOCAINE HCL 2% JELLY 10 ML CARTRIDGE TP ONE (14:09)
[2021-03-15] MEDS: QUEtiapine FUMARATE 25 MG TABLET PO SCH (21:08)
[2021-03-15] MEDS: MELATONIN 5 MG TABLETS PO SCH (21:08)
[2021-03-15] MEDS: ATORVASTATIN CA 20 MG TABLET (FP) PO SCH (21:08)
[2021-03-15] MEDS: POLYETHYLENE GLYCOL (HEALTHYLAX) 3350 17 GM PACKET PO SCH (21:15)
[2021-03-15] MEDS: MIRTAZAPINE 15 MG TABLET (FP) PO SCH (21:16)
[2021-03-16] MEDS: INSULIN SLIDING SCALE (NOVOLOG) 1 VIAL SQ SCH ×4 (06:01→22:12)
[2021-03-16] MEDS ORDERED: IRON SUCROSE INJECTION 200 MG in SODIUM CHLORIDE 90 ML IVPB ONE (09:00)
[2021-03-16] MEDS: FERROUS SO4 325 MG TABLET (FP) PO SCH (09:36)
[2021-03-16] MEDS: ASCORBIC ACID 500 MG TABLET (FP) PO SCH (09:36)
[2021-03-16] MEDS: SODIUM ZIRCONIUM CYCLOSILICATE (LOKELMA) 5 GM PACKET PO SCH (09:37)
[2021-03-16] MEDS: DIVALPROEX SODIUM 250 MG TABLET E.C. PO SCH ×2 (09:37→22:11)
[2021-03-16] MEDS: CYANOCOBALAMIN 1,000 MCG TABLET (FP) PO SCH (09:37)
[2021-03-16] MEDS: SUCRALFATE 1 GM/10 ML UNIT DOSE CUPS NR SCH ×2 (09:59→22:07)
[2021-03-16] MEDS: SODIUM CHLORIDE 0.45% 1,000 ML IV SCH (16:39)
[2021-03-16] MEDS ORDERED: PT OWN MED DRAWER 7, Y5N ONE ×2 (17:54→22:05)
[2021-03-16] MEDS: POLYETHYLENE GLYCOL (HEALTHYLAX) 3350 17 GM PACKET PO SCH (22:08)
[2021-03-16] MEDS: QUEtiapine FUMARATE 25 MG TABLET PO SCH (22:10)
[2021-03-16] MEDS: MIRTAZAPINE 15 MG TABLET (FP) PO SCH (22:10)
[2021-03-16] MEDS: ATORVASTATIN CA 20 MG TABLET (FP) PO SCH (22:11)
[2021-03-16] MEDS: MELATONIN 5 MG TABLETS PO SCH (22:11)
[2021-03-17] MEDS: SODIUM CHLORIDE 0.45% 1,000 ML IV SCH (05:45)
[2021-03-17] MEDS: INSULIN SLIDING SCALE (NOVOLOG) 1 VIAL SQ SCH ×4 (07:31→21:57)
[2021-03-17 08:24] LABS: BASO % 0.3 % (0-2.0); EOS % 1.6 % (0-4.5); HEMATOCRIT 24.8 % (35.4-49); HEMOGLOBIN 8.5 GM/dL (11.7-16.9); LYMPH % 17.3 % (8-40); MCHC 34.2 g/dl (32.0-35.9); MEAN CELL VOLUME 96.5 fl (80-96); MEAN PLT VOLUME 8.4 fl (7.5-11.1); MONO % 12.4 % (3.8-10.2); NEUT % 68.4 % (42.8-82.8); PLATELET COUNT 113 10^3/uL (134-434); RBC 2.57 M/mm3 (4.00-5.60); RDW 15.1 % (11.9-15.9); RETICULOCYTES 1.11 % (0.5-1.5); WHITE BLOOD COUNT 7.7 K/mm3 (4.0-10.0)
[2021-03-17 08:44] LABS: BLOOD UREA NITROGEN 15.4 mg/dL (7-18); CALCIUM 8.4 mg/dL (8.5-10.1)
[2021-03-17 08:48] LABS: CREATININE 1.3 mg/dL (0.55-1.3)
[2021-03-17] MEDS: SODIUM ZIRCONIUM CYCLOSILICATE (LOKELMA) 5 GM PACKET PO SCH ×2 (09:06→09:10)
[2021-03-17] MEDS: DIVALPROEX SODIUM 250 MG TABLET E.C. PO SCH ×2 (09:07→21:56)
[2021-03-17] MEDS: CYANOCOBALAMIN 1,000 MCG TABLET (FP) PO SCH (09:07)
[2021-03-17] MEDS: ASCORBIC ACID 500 MG TABLET (FP) PO SCH (09:07)
[2021-03-17] MEDS: FERROUS SO4 325 MG TABLET (FP) PO SCH (09:07)
[2021-03-17] MEDS: SUCRALFATE 1 GM/10 ML UNIT DOSE CUPS NR SCH (11:25)
[2021-03-17] MEDS ORDERED: PT OWN MED DRAWER 7, Y5N ONE (20:42)
[2021-03-17] MEDS: POLYETHYLENE GLYCOL (HEALTHYLAX) 3350 17 GM PACKET PO SCH (21:54)
[2021-03-17] MEDS: MIRTAZAPINE 15 MG TABLET (FP) PO SCH (21:55)
[2021-03-17] MEDS: QUEtiapine FUMARATE 25 MG TABLET PO SCH (21:55)
[2021-03-17] MEDS: MELATONIN 5 MG TABLETS PO SCH (21:55)
[2021-03-17] MEDS: ATORVASTATIN CA 20 MG TABLET (FP) PO SCH (21:56)
[2021-03-18] MEDS: SODIUM CHLORIDE 0.45% 1,000 ML IV SCH ×2 (03:00→23:55)
[2021-03-18] MEDS: INSULIN SLIDING SCALE (NOVOLOG) 1 VIAL SQ SCH ×4 (06:45→21:50)
[2021-03-18] MEDS ORDERED: PT OWN MED DRAWER 7, Y5N ONE ×2 (09:34→21:19)
[2021-03-18] MEDS: FERROUS SO4 325 MG TABLET (FP) PO SCH (10:06)
[2021-03-18] MEDS: CYANOCOBALAMIN 1,000 MCG TABLET (FP) PO SCH (10:06)
[2021-03-18] MEDS: DIVALPROEX SODIUM 250 MG TABLET E.C. PO SCH ×2 (10:06→21:47)
[2021-03-18] MEDS: ASCORBIC ACID 500 MG TABLET (FP) PO SCH (10:07)
[2021-03-18] MEDS: SODIUM ZIRCONIUM CYCLOSILICATE (LOKELMA) 5 GM PACKET PO SCH (10:07)
[2021-03-18 10:32] LABS: BASO % 0.3 % (0-2.0); EOS % 2.2 % (0-4.5); HEMATOCRIT 25.8 % (35.4-49); LYMPH % 12.6 % (8-40); MCH 32.6 pg (25.7-33.7); MEAN CELL VOLUME 93.3 fl (80-96); MEAN PLT VOLUME 8.1 fl (7.5-11.1); MONO % 9.4 % (3.8-10.2); NEUT % 75.5 % (42.8-82.8); PLATELET COUNT 125 10^3/uL (134-434); RBC 2.76 M/mm3 (4.00-5.60); WHITE BLOOD COUNT 6.5 K/mm3 (4.0-10.0)
[2021-03-18 10:50] LABS: CALCIUM 9.1 mg/dL (8.5-10.1)
[2021-03-18 10:51] LABS: BLOOD UREA NITROGEN 17.9 mg/dL (7-18)
[2021-03-18 10:54] LABS: CREATININE 1.2 mg/dL (0.55-1.3)
[2021-03-18] MEDS: MIRTAZAPINE 15 MG TABLET (FP) PO SCH (21:43)
[2021-03-18] MEDS: ATORVASTATIN CA 20 MG TABLET (FP) PO SCH (21:43)
[2021-03-18] MEDS: MELATONIN 5 MG TABLETS PO SCH (21:43)
[2021-03-18] MEDS: POLYETHYLENE GLYCOL (HEALTHYLAX) 3350 17 GM PACKET PO SCH (21:45)
[2021-03-18] MEDS: QUEtiapine FUMARATE 25 MG TABLET PO SCH (21:47)
[2021-03-19] MEDS: INSULIN SLIDING SCALE (NOVOLOG) 1 VIAL SQ SCH ×4 (06:10→21:48)
[2021-03-19] MEDS ORDERED: PT OWN MED DRAWER 7, Y5N ONE ×2 (08:56→21:05)
[2021-03-19] MEDS: FERROUS SO4 325 MG TABLET (FP) PO SCH (09:34)
[2021-03-19] MEDS: ASCORBIC ACID 500 MG TABLET (FP) PO SCH (09:34)
[2021-03-19] MEDS: CYANOCOBALAMIN 1,000 MCG TABLET (FP) PO SCH (09:34)
[2021-03-19] MEDS: DIVALPROEX SODIUM 250 MG TABLET E.C. PO SCH ×2 (09:34→21:41)
[2021-03-19] MEDS: SODIUM ZIRCONIUM CYCLOSILICATE (LOKELMA) 5 GM PACKET PO SCH (11:21)
[2021-03-19] MEDS: MELATONIN 5 MG TABLETS PO SCH (21:41)
[2021-03-19] MEDS: QUEtiapine FUMARATE 25 MG TABLET PO SCH (21:41)
[2021-03-19] MEDS: MIRTAZAPINE 15 MG TABLET (FP) PO SCH (21:44)
[2021-03-19] MEDS: ATORVASTATIN CA 20 MG TABLET (FP) PO SCH (21:44)
[2021-03-19] MEDS: POLYETHYLENE GLYCOL (HEALTHYLAX) 3350 17 GM PACKET PO SCH (21:44)
[2021-03-20] MEDS: INSULIN SLIDING SCALE (NOVOLOG) 1 VIAL SQ SCH ×2 (06:28→12:24)
[2021-03-20] MEDS ORDERED: PT OWN MED DRAWER 7, Y5N ONE (08:23)
[2021-03-20] MEDS: SODIUM ZIRCONIUM CYCLOSILICATE (LOKELMA) 5 GM PACKET PO SCH (09:17)
[2021-03-20] MEDS: FERROUS SO4 325 MG TABLET (FP) PO SCH (09:17)
[2021-03-20] MEDS: CYANOCOBALAMIN 1,000 MCG TABLET (FP) PO SCH (09:17)
[2021-03-20] MEDS: ASCORBIC ACID 500 MG TABLET (FP) PO SCH (09:17)
[2021-03-20] MEDS: DIVALPROEX SODIUM 250 MG TABLET E.C. PO SCH (09:18)
[2021-03-20 12:02] VITALS: BP 140/74; PULSE 78; TEMP 97.9
[2021-03-20] MEDS: SODIUM CHLORIDE 0.45% 1,000 ML IV SCH (12:22)
== END 2021-03-20 16:00 | DRG 813 ==
LOC: JER 16:02 → JERBED 18:35 → J7W 03-11 11:03 → J4W 03-14 18:35
PROVIDERS: ATTEND Family Medicine
PROC: 30233N1 Transfusion of Nonautologous Red Blood Cells into Peripheral Vein, Percutaneous Approach (ICD-10-PCS; 2021-03-10)
PROC: 0DJD8ZZ Inspection of Lower Intestinal Tract, Via Natural or Artificial Opening Endoscopic (ICD-10-PCS; principal; 2021-03-15 13:00)
DX: D68.318 Other hemorrhagic disorder due to intrinsic circulating anticoagulants, antibodies, or inhibitors (principal); K57.31 Diverticulosis of large intestine without perforation or abscess with bleeding; N17.9 Acute kidney failure, unspecified; I48.20 Chronic atrial fibrillation, unspecified; K63.3 Ulcer of intestine; Z68.1 Body mass index [BMI] 19.9 or less, adult; I25.10 Atherosclerotic heart disease of native coronary artery without angina pectoris; F03.90 Unspecified dementia, unspecified severity, without behavioral disturbance, psychotic disturbance, mood disturbance, and anxiety; I11.0 Hypertensive heart disease with heart failure; F31.9 Bipolar disorder, unspecified; F20.9 Schizophrenia, unspecified; E78.5 Hyperlipidemia, unspecified; I50.810 Right heart failure, unspecified; E11.22 Type 2 diabetes mellitus with diabetic chronic kidney disease; E87.5 Hyperkalemia; D50.0 Iron deficiency anemia secondary to blood loss (chronic); K55.20 Angiodysplasia of colon without hemorrhage; I48.0 Paroxysmal atrial fibrillation; N18.9 Chronic kidney disease, unspecified; D64.9 Anemia, unspecified; Z98.61 Coronary angioplasty status; K64.8 Other hemorrhoids
CPT/HCPCS: 36415; 36430; 80048; 80053; 82272; 82728; 82962; 83540; 83550; 85025; 85045; 85610; 85730; 86850; 86900; 86901; 86922; 93005; 93010; 99285-25; C9803; J1756; P9058; U0003; U0005

== ENCOUNTER 2021-11-25 05:00 | Emergency (ER) | payer OTHER ==
[2021-11-25 05:24] VITALS: TEMP 97.7; BMI 22.9
[2021-11-25] MEDS ORDERED: DIPHTH,PERTUSS(ACELL),TET 0.5 ML DISP.SYRIN IM ONE ×2 (05:39→06:29)
[2021-11-25 07:29] LABS: BASO % 0.6 % (0-2.0); EOS % 5.3 % (0-4.5); HEMATOCRIT 32.1 % (35.4-49); HEMOGLOBIN 11.1 GM/dL (11.7-16.9); MCH 32.2 pg (25.7-33.7); MCHC 34.5 g/dl (32.0-35.9); MEAN CELL VOLUME 93.3 fl (80-96); MEAN PLT VOLUME 9.2 fl (7.5-11.1); NEUT % 53.1 % (42.8-82.8); PLATELET COUNT 114 10^3/uL (134-434); RBC 3.44 M/mm3 (4.00-5.60); RDW 13.1 % (11.9-15.9); WHITE BLOOD COUNT 5.8 K/mm3 (4.0-10.0)
[2021-11-25 07:52] LABS: CALCIUM 9.1 mg/dL (8.5-10.1)
[2021-11-25 07:53] LABS: ALBUMIN 3.7 g/dl (3.4-5.0); BLOOD UREA NITROGEN 37.5 mg/dL (7-18)
[2021-11-25 07:56] LABS: CREATININE 1.7 mg/dL (0.55-1.3)
[2021-11-25 07:57] LABS: BILIRUBIN,TOTAL 0.8 mg/dL (0.2-1); TOT PROT 7.1 g/dl (6.4-8.2)
[2021-11-25] MEDS ORDERED: SODIUM CHLORIDE 0.9% 1000 ML INFUS.BAG IV ONE (09:09)
[2021-11-25] MEDS ORDERED: MIDAZOLAM HCL 2 MG/2 ML SINGLE DOSE VIAL IVPUSH ONE (09:17)
[2021-11-25] MEDS ORDERED: MIDAZOLAM HCL 2 MG/2 ML SINGLE DOSE VIAL ONE (09:20)
[2021-11-25 17:49] VITALS: BP 145/77; PULSE 67
== END 2021-11-25 18:02 ==
LOC: JER 05:00
PROC: 3E0234Z Introduction of Serum, Toxoid and Vaccine into Muscle, Percutaneous Approach (ICD-10-PCS; principal; 2021-11-25)
PROC: 3E033NZ Introduction of Analgesics, Hypnotics, Sedatives into Peripheral Vein, Percutaneous Approach (ICD-10-PCS; 2021-11-25)
DX: S01.81XA Laceration without foreign body of other part of head, initial encounter (principal); W17.89XA Other fall from one level to another, initial encounter
CPT/HCPCS: 36415; 70450-TC; 70496-TC; 70498-TC; 71045-TC-FY; 72125-TC; 72170-TC-FY; 73502-TC-RT-FY; 73562-TC-RT-FY; 80053; 82272; 85025; 90471; 90715; 93005; 93010; 96374; 99285-25; C9803-CS; Q9967; U0003; U0005

== ENCOUNTER 2023-05-26 21:38 | Inpatient (IN) | payer OTHER ==
[2023-05-26 22:58] LABS: BASO % 0.8 % (0-2.0); EOS % 4.4 % (0-4.5); HEMATOCRIT 37.3 % (35.4-49); HEMOGLOBIN 12.2 GM/dL (11.7-16.9); MCH 31.5 pg (25.7-33.7); MCHC 32.8 g/dl (32.0-35.9); MEAN CELL VOLUME 95.9 fl (80-96); MEAN PLT VOLUME 9.8 fl (7.5-11.1); MONO % 13.2 % (3.8-10.2); NEUT % 57.6 % (42.8-82.8); PLATELET COUNT 99 10^3/uL (134-434); RBC 3.89 M/mm3 (4.00-5.60); RDW 13.1 % (11.9-15.9); WHITE BLOOD COUNT 6.4 K/mm3 (4.0-10.0)
[2023-05-26 23:02] LABS: EPI CELLS 5 /uL (0-25.1); HYALINE CASTS 0 /uL (0-3.1); URINE APPEARANCE CLEAR; URINE BACTERIA 2 /uL (0-1359); URINE BILIRUBIN NEGATIVE (NEGATIVE); URINE COLOR YELLOW; URINE GLUCOSE (UA) NEGATIVE (NEGATIVE); URINE KETONE TRACE (NEGATIVE); URINE LEUK ESTERASE NEGATIVE (NEGATIVE); URINE NITRITE NEGATIVE (NEGATIVE); URINE PROTEIN TRACE (NEGATIVE); URINE RBC 16 /uL (0-23.9); URINE UROBILINOGEN 0.2 mg/dL (0.2-1.0); URINE WBC 4 /uL (0-25.8)
[2023-05-26 23:18] LABS: CHLORIDE 112 mmol/L (98-107); POTASSIUM 4.6 mmol/L (3.5-5.1); SODIUM 147 mmol/L (136-145)
[2023-05-26 23:21] LABS: ALBUMIN 3.6 g/dl (3.4-5.0); ANION GAP 6 mmol/L (4-13); BLOOD UREA NITROGEN 51.4 mg/dL (7-18); CALCIUM 9.6 mg/dL (8.5-10.1); CO2 28 mmol/L (21-32); GLUCOSE,RANDOM 95 mg/dL (74-106)
[2023-05-26 23:23] LABS: CREATININE 2.1 mg/dL (0.55-1.3)
[2023-05-26 23:24] LABS: SGOT/AST 51 U/L (15-37)
[2023-05-26 23:25] LABS: BILIRUBIN,TOTAL 0.9 mg/dL (0.2-1); SGPT/ALT 47 U/L (13-61); TOT PROT 7.5 g/dl (6.4-8.2)
[2023-05-26 23:27] LABS: ALK PHOS 74 U/L (45-117)
[2023-05-26 23:34] LABS: INR 1.1 (0.83-1.09); PROTHROMBIN TIME (PATIENT) 12.7 SEC (9.7-13.0)
[2023-05-26 23:37] LABS: ACTIVATED PTT 37.7 SECONDS (25.2-36.5)
[2023-05-27] MEDS ORDERED: SODIUM CHLORIDE 1,000 ML IV SCH (01:30)
[2023-05-27] MEDS ORDERED: ASPIRIN 325 MG TABLET PO ONE (03:28)
[2023-05-27] MEDS ORDERED: metoPROLOL SUCCINATE 25 MG TAB.SR.24H (FP) PO ONE (03:38)
[2023-05-27] MEDS: METOPROLOL TARTRATE 25 MG TABLET (FP) PO SCH ×2 (03:48→10:14)
[2023-05-27] MEDS ORDERED: HEPARIN NA (PORCINE) 5,000 UNITS/ML 1ML VIAL ONE (06:16)
[2023-05-27] MEDS: HEPARIN NA (PORCINE) 5,000 UNITS/ML 1ML VIAL SQ SCH ×3 (06:33→23:11)
[2023-05-27 07:13] LABS: HEMATOCRIT 36.1 % (35.4-49); HEMOGLOBIN 11.9 GM/dL (11.7-16.9); LYMPH % 30.4 % (8-40); MCH 31.8 pg (25.7-33.7); MCHC 32.8 g/dl (32.0-35.9); MEAN CELL VOLUME 96.9 fl (80-96); MEAN PLT VOLUME 9.5 fl (7.5-11.1); MONO % 14.4 % (3.8-10.2); NEUT % 50.2 % (42.8-82.8); PLATELET COUNT 90 10^3/uL (134-434); RBC 3.72 M/mm3 (4.00-5.60); RDW 13.3 % (11.9-15.9); WHITE BLOOD COUNT 4.8 K/mm3 (4.0-10.0)
[2023-05-27 07:44] LABS: ALBUMIN 3.5 g/dl (3.4-5.0); BLOOD UREA NITROGEN 49.7 mg/dL (7-18); CALCIUM 9.4 mg/dL (8.5-10.1)
[2023-05-27 07:47] LABS: CREATININE 1.9 mg/dL (0.55-1.3)
[2023-05-27 07:48] LABS: BILIRUBIN,TOTAL 0.9 mg/dL (0.2-1); CHOLESTEROL 126 mg/dL (50-200); PHOSPHOROUS 2.9 mg/dL (2.5-4.9); TOT PROT 7.2 g/dl (6.4-8.2)
[2023-05-27 07:50] LABS: LDL CHOLESTEROL (ONLY SJRH) 70 mg/dL (5-100)
[2023-05-27 07:51] LABS: HDL CHOLESTEROL 48 mg/dL (40-60)
[2023-05-27] MEDS ORDERED: DIVALPROEX SODIUM 250 MG TABLET E.C. ONE (10:09)
[2023-05-27] MEDS ORDERED: METOPROLOL TARTRATE 25 MG TABLET (FP) ONE (10:09)
[2023-05-27] MEDS ORDERED: PANTOPRAZOLE 40 MG TABLET PO ONE (10:09)
[2023-05-27] MEDS ORDERED: ASPIRIN 81 MG CHEWABLE TABLETS ONE (10:09)
[2023-05-27] MEDS: MEMANTINE HCL 10 MG TABLET (FP) PO SCH ×2 (10:14→23:12)
[2023-05-27] MEDS: ASPIRIN 81 MG CHEWABLE TABLETS PO SCH (10:14)
[2023-05-27] MEDS: PANTOPRAZOLE 40 MG TABLET PO SCH (10:14)
[2023-05-27] MEDS: DIVALPROEX SODIUM 250 MG TABLET E.C. PO SCH ×2 (10:14→23:10)
[2023-05-27] MEDS ORDERED: SUCRALFATE 1 GM TABLET (FP) PO SCH (12:15)
[2023-05-27] MEDS ORDERED: SUCRALFATE 1 GM TABLET (FP) ONE ×2 (14:04→17:25)
[2023-05-27] MEDS ORDERED: POLYETHYLENE GLYCOL (HEALTHYLAX) 3350 17 GM PACKET ONE (14:08)
[2023-05-27] MEDS: POLYETHYLENE GLYCOL (HEALTHYLAX) 3350 17 GM PACKET PO SCH (14:10)
[2023-05-27] MEDS: SUCRALFATE 1 GM TABLET (FP) PO SCH (17:30)
[2023-05-27] MEDS: ATORVASTATIN CA 40 MG TABLET (FP) PO SCH (23:10)
[2023-05-27] MEDS: MIRTAZAPINE 15 MG TABLET (FP) PO SCH (23:10)
[2023-05-28] MEDS ORDERED: HEPARIN NA (PORCINE) 5,000 UNITS/ML 1ML VIAL ONE ×2 (00:16→14:12)
[2023-05-28] MEDS ORDERED: DIVALPROEX SODIUM 250 MG TABLET E.C. ONE (00:16)
[2023-05-28] MEDS ORDERED: ATORVASTATIN CA 40 MG TABLET (FP) ONE (00:16)
[2023-05-28] MEDS: HEPARIN NA (PORCINE) 5,000 UNITS/ML 1ML VIAL SQ SCH ×2 (06:45→14:18)
[2023-05-28] MEDS: SUCRALFATE 1 GM TABLET (FP) PO SCH (07:47)
[2023-05-28] MEDS: POLYETHYLENE GLYCOL (HEALTHYLAX) 3350 17 GM PACKET PO SCH (10:37)
[2023-05-28] MEDS: MEMANTINE HCL 10 MG TABLET (FP) PO SCH ×2 (10:37→22:54)
[2023-05-28] MEDS: DIVALPROEX SODIUM 250 MG TABLET E.C. PO SCH ×2 (10:37→22:12)
[2023-05-28] MEDS: METOPROLOL TARTRATE 25 MG TABLET (FP) PO SCH (10:37)
[2023-05-28] MEDS: PANTOPRAZOLE 40 MG TABLET PO SCH (10:37)
[2023-05-28] MEDS: ASPIRIN 81 MG CHEWABLE TABLETS PO SCH (10:37)
[2023-05-28] MEDS ORDERED: ACETAMINOPHEN 1000 MG/100 ML BAG IVPB PRN (14:48)
[2023-05-28] MEDS ORDERED: APIXABAN 2.5 MG TABLET PO SCH (22:00)
[2023-05-28] MEDS: ATORVASTATIN CA 40 MG TABLET (FP) PO SCH (22:12)
[2023-05-28] MEDS: MIRTAZAPINE 15 MG TABLET (FP) PO SCH (22:12)
[2023-05-29] MEDS: MEMANTINE HCL 10 MG TABLET (FP) PO SCH ×3 (09:16→21:40)
[2023-05-29] MEDS: METOPROLOL TARTRATE 25 MG TABLET (FP) PO SCH ×2 (09:16→11:33)
[2023-05-29] MEDS: PANTOPRAZOLE 40 MG TABLET PO SCH ×2 (09:16→11:33)
[2023-05-29] MEDS: POLYETHYLENE GLYCOL (HEALTHYLAX) 3350 17 GM PACKET PO SCH ×2 (09:16→11:32)
[2023-05-29] MEDS: DIVALPROEX SODIUM 250 MG TABLET E.C. PO SCH ×3 (09:16→21:40)
[2023-05-29] MEDS ORDERED: DEXTROSE 50%-WATER 25 GM/50 ML DISP.SYRIN IVPUSH ONE (09:45)
[2023-05-29] MEDS ORDERED: ENOXAPARIN NA (PORCINE) 40 MG/0.4 ML DISP.SYRIN SQ SCH (10:00)
[2023-05-29 10:21] LABS: BASO % 0.7 % (0-2.0); EOS % 6.6 % (0-4.5); HEMATOCRIT 34.6 % (35.4-49); HEMOGLOBIN 11.4 GM/dL (11.7-16.9); LYMPH % 37.5 % (8-40); MCH 31.7 pg (25.7-33.7); MCHC 32.8 g/dl (32.0-35.9); MEAN CELL VOLUME 96.6 fl (80-96); MEAN PLT VOLUME 9.5 fl (7.5-11.1); NEUT % 40.2 % (42.8-82.8); PLATELET COUNT 94 10^3/uL (134-434); RBC 3.58 M/mm3 (4.00-5.60); RDW 13.3 % (11.9-15.9); WHITE BLOOD COUNT 4.5 K/mm3 (4.0-10.0)
[2023-05-29 10:44] LABS: POTASSIUM 4.2 mmol/L (3.5-5.1)
[2023-05-29 10:45] LABS: ARTERIAL BLD GAS O2 SATURATION 97.9 % (95-98); ARTERIAL BLOOD GAS BASE EXCESS 0.5 mmol/L (-2-2); ARTERIAL BLOOD GAS PO2 101.3 mmHg (80-100); ARTERIAL BLOOD GAS pH 7.442 (7.350-7.450)
[2023-05-29 10:46] LABS: ALLENS TEST POSITIVE
[2023-05-29 10:53] LABS: BLOOD UREA NITROGEN 40.5 mg/dL (7-18); CALCIUM 9.5 mg/dL (8.5-10.1); MAGNESIUM 1.8 mg/dL (1.8-2.4)
[2023-05-29 10:54] LABS: ALBUMIN 3.1 g/dl (3.4-5.0)
[2023-05-29 10:56] LABS: CREATININE 1.9 mg/dL (0.55-1.3)
[2023-05-29 10:57] LABS: PHOSPHOROUS 2.6 mg/dL (2.5-4.9)
[2023-05-29 10:58] LABS: BILIRUBIN,TOTAL 0.8 mg/dL (0.2-1); TOT PROT 6.5 g/dl (6.4-8.2)
[2023-05-29] MEDS ORDERED: MAGNESIUM OXIDE 400 MG TABLET (FP) PO ONE (11:55)
[2023-05-29 15:44] VITALS: BMI 22.3
[2023-05-29] MEDS ORDERED: DEXTROSE 5%-WATER - 1,000 ML IV SCH (16:30)
[2023-05-29] MEDS: ATORVASTATIN CA 40 MG TABLET (FP) PO SCH (21:40)
[2023-05-29] MEDS: MIRTAZAPINE 15 MG TABLET (FP) PO SCH (21:40)
[2023-05-29] MEDS: APIXABAN 2.5 MG TABLET PO SCH (21:40)
[2023-05-30 09:14] LABS: BASO % 0.7 % (0-2.0); EOS % 7.2 % (0-4.5); HEMATOCRIT 33.4 % (35.4-49); HEMOGLOBIN 11.1 GM/dL (11.7-16.9); LYMPH % 35.6 % (8-40); MCH 31.8 pg (25.7-33.7); MCHC 33.1 g/dl (32.0-35.9); MEAN CELL VOLUME 95.9 fl (80-96); MEAN PLT VOLUME 9.9 fl (7.5-11.1); NEUT % 43.5 % (42.8-82.8); PLATELET COUNT 87 10^3/uL (134-434); RBC 3.49 M/mm3 (4.00-5.60); RDW 13.5 % (11.9-15.9); WHITE BLOOD COUNT 4.6 K/mm3 (4.0-10.0)
[2023-05-30] MEDS: METOPROLOL TARTRATE 25 MG TABLET (FP) PO SCH (09:31)
[2023-05-30] MEDS: DIVALPROEX SODIUM 250 MG TABLET E.C. PO SCH ×2 (09:31→22:07)
[2023-05-30] MEDS: MEMANTINE HCL 10 MG TABLET (FP) PO SCH ×2 (09:31→22:07)
[2023-05-30] MEDS: PANTOPRAZOLE 40 MG TABLET PO SCH (09:31)
[2023-05-30] MEDS: POLYETHYLENE GLYCOL (HEALTHYLAX) 3350 17 GM PACKET PO SCH (09:31)
[2023-05-30 09:33] LABS: POTASSIUM 4.1 mmol/L (3.5-5.1)
[2023-05-30 09:54] LABS: ALBUMIN 2.9 g/dl (3.4-5.0); BLOOD UREA NITROGEN 36.3 mg/dL (7-18); CALCIUM 8.6 mg/dL (8.5-10.1); MAGNESIUM 2.1 mg/dL (1.8-2.4)
[2023-05-30 09:57] LABS: CREATININE 1.8 mg/dL (0.55-1.3)
[2023-05-30 09:58] LABS: BILIRUBIN,TOTAL 0.8 mg/dL (0.2-1); TOT PROT 6.1 g/dl (6.4-8.2)
[2023-05-30 18:56] LABS: EPI CELLS 6 /uL (0-25.1); HYALINE CASTS 0 /uL (0-3.1); PH,URINE 5.5 (5.0-8.0); URINE APPEARANCE CLOUDY; URINE BACTERIA 6179 /uL (0-1359); URINE BILIRUBIN NEGATIVE (NEGATIVE); URINE COLOR YELLOW; URINE GLUCOSE (UA) NEGATIVE (NEGATIVE); URINE KETONE TRACE (NEGATIVE); URINE LEUK ESTERASE TRACE (NEGATIVE); URINE NITRITE NEGATIVE (NEGATIVE); URINE PROTEIN NEGATIVE (NEGATIVE); URINE RBC 10 /uL (0-23.9); URINE WBC 29 /uL (0-25.8)
[2023-05-30] MEDS: MIRTAZAPINE 15 MG TABLET (FP) PO SCH (22:07)
[2023-05-30] MEDS: APIXABAN 2.5 MG TABLET PO SCH (22:07)
[2023-05-30] MEDS: ATORVASTATIN CA 40 MG TABLET (FP) PO SCH (22:07)
[2023-05-31 09:01] LABS: BASO % 0.8 % (0-2.0); EOS % 7.9 % (0-4.5); HEMATOCRIT 31.9 % (35.4-49); HEMOGLOBIN 10.8 GM/dL (11.7-16.9); LYMPH % 35.1 % (8-40); MCH 32.5 pg (25.7-33.7); MCHC 33.7 g/dl (32.0-35.9); MEAN CELL VOLUME 96.4 fl (80-96); MEAN PLT VOLUME 9.8 fl (7.5-11.1); MONO % 11.8 % (3.8-10.2); NEUT % 44.4 % (42.8-82.8); PLATELET COUNT 89 10^3/uL (134-434); RBC 3.31 M/mm3 (4.00-5.60); WHITE BLOOD COUNT 5.2 K/mm3 (4.0-10.0)
[2023-05-31 09:11] LABS: CALCIUM 8.7 mg/dL (8.5-10.1)
[2023-05-31 09:12] LABS: ALBUMIN 2.8 g/dl (3.4-5.0)
[2023-05-31 09:16] LABS: BILIRUBIN,TOTAL 0.6 mg/dL (0.2-1); TOT PROT 6.1 g/dl (6.4-8.2)
[2023-05-31] MEDS: PANTOPRAZOLE 40 MG TABLET PO SCH (10:01)
[2023-05-31] MEDS: DIVALPROEX SODIUM 250 MG TABLET E.C. PO SCH ×2 (10:01→21:47)
[2023-05-31] MEDS: MEMANTINE HCL 10 MG TABLET (FP) PO SCH ×2 (10:01→21:47)
[2023-05-31] MEDS: METOPROLOL TARTRATE 25 MG TABLET (FP) PO SCH (10:01)
[2023-05-31] MEDS: POLYETHYLENE GLYCOL (HEALTHYLAX) 3350 17 GM PACKET PO SCH (10:02)
[2023-05-31] MEDS: APIXABAN 2.5 MG TABLET PO SCH ×2 (11:57→21:48)
[2023-05-31] MEDS: MIRTAZAPINE 15 MG TABLET (FP) PO SCH (21:47)
[2023-05-31] MEDS: ATORVASTATIN CA 40 MG TABLET (FP) PO SCH (21:47)
[2023-05-31 22:56] VITALS: RESP 18
[2023-06-01 09:43] LABS: BASO % 0.7 % (0-2.0); EOS % 8.3 % (0-4.5); HEMATOCRIT 31.1 % (35.4-49); HEMOGLOBIN 10.4 GM/dL (11.7-16.9); LYMPH % 37.2 % (8-40); MCH 32.3 pg (25.7-33.7); MCHC 33.5 g/dl (32.0-35.9); MEAN CELL VOLUME 96.6 fl (80-96); MEAN PLT VOLUME 9.7 fl (7.5-11.1); MONO % 10.8 % (3.8-10.2); PLATELET COUNT 86 10^3/uL (134-434); RBC 3.22 M/mm3 (4.00-5.60); RDW 13.5 % (11.9-15.9); WHITE BLOOD COUNT 4.9 K/mm3 (4.0-10.0)
[2023-06-01] MEDS: POLYETHYLENE GLYCOL (HEALTHYLAX) 3350 17 GM PACKET PO SCH (10:25)
[2023-06-01] MEDS: DIVALPROEX SODIUM 250 MG TABLET E.C. PO SCH (10:25)
[2023-06-01] MEDS: PANTOPRAZOLE 40 MG TABLET PO SCH (10:25)
[2023-06-01] MEDS: MEMANTINE HCL 10 MG TABLET (FP) PO SCH (10:25)
[2023-06-01] MEDS: APIXABAN 2.5 MG TABLET PO SCH (10:25)
[2023-06-01] MEDS: METOPROLOL TARTRATE 25 MG TABLET (FP) PO SCH (10:25)
[2023-06-01 10:55] LABS: POTASSIUM 4.6 mmol/L (3.5-5.1)
[2023-06-01 11:03] LABS: CREATININE 2.2 mg/dL (0.55-1.3)
[2023-06-01 11:04] LABS: CALCIUM 9.1 mg/dL (8.5-10.1)
[2023-06-01 11:05] LABS: ALBUMIN 2.9 g/dl (3.4-5.0); BILIRUBIN,TOTAL 0.6 mg/dL (0.2-1); MAGNESIUM 1.9 mg/dL (1.8-2.4); TOT PROT 6.1 g/dl (6.4-8.2)
[2023-06-01 19:54] VITALS: BP 109/59; PULSE 69; TEMP 97.4
== END 2023-06-01 21:15 | DRG 682 ==
LOC: JER 21:38 → JERBED 05-27 01:16 → OBSVTOIN 05-27 01:23 → J7W 05-28 16:46
PROVIDERS: ADMIT Internal Medicine; ATTEND Nurse Practitioner Acute Care
DX: N17.9 Acute kidney failure, unspecified (principal); G93.41 Metabolic encephalopathy; U07.1 COVID-19; I48.20 Chronic atrial fibrillation, unspecified; I13.0 Hypertensive heart and chronic kidney disease with heart failure and stage 1 through stage 4 chronic kidney disease, or unspecified chronic kidney disease; E87.0 Hyperosmolality and hypernatremia; N18.9 Chronic kidney disease, unspecified; F03.90 Unspecified dementia, unspecified severity, without behavioral disturbance, psychotic disturbance, mood disturbance, and anxiety; E78.5 Hyperlipidemia, unspecified; F31.9 Bipolar disorder, unspecified; F20.9 Schizophrenia, unspecified; I25.10 Atherosclerotic heart disease of native coronary artery without angina pectoris; Z85.46 Personal history of malignant neoplasm of prostate; E11.9 Type 2 diabetes mellitus without complications; I51.3 Intracardiac thrombosis, not elsewhere classified; Z95.5 Presence of coronary angioplasty implant and graft; K21.9 Gastro-esophageal reflux disease without esophagitis; I50.9 Heart failure, unspecified
CPT/HCPCS: 0241U-QW; 36415; 36600; 70450-TC; 71045-TC-FY; 76775-TC; 80053; 80061; 81003; 82550; 82553; 82803; 82962; 83735; 84100; 84484; 85025; 85610; 85730; 86850; 86900; 86901; 87040; 87086; 87635; 93005; 93010; 93306-TC; 97116-GP; 97161-GP; 99285-25; G0378; J1644

== ENCOUNTER 2023-06-15 12:58 | Inpatient (IN) | payer OTHER ==
[2023-06-15 13:22] VITALS: BMI 22.8
[2023-06-15] MEDS ORDERED: ACETAMINOPHEN INJECTION 100 ML IVPB ONE (13:47)
[2023-06-15 13:51] LABS: VENOUS BASE EXCESS -2.2 mmol/L (-2-2); VENOUS O2 SATURATION 43.9 % (70-80); VENOUS PCO2 41.4 mmHg (38-52); VENOUS PH 7.363 (7.310-7.410)
[2023-06-15] MEDS: SODIUM CHLORIDE 2,109 ML IV ONE (13:51)
[2023-06-15] MEDS: ACETAMINOPHEN 1000 MG/100 ML BAG IVPB ONE (13:51)
[2023-06-15] MEDS: SODIUM CHLORIDE 250 ML IV STA (13:52)
[2023-06-15 14:21] LABS: LACTIC ACID 3.6 mmol/L (0.4-2.0)
[2023-06-15 14:28] LABS: CHLORIDE 137 mmol/L (98-107); POTASSIUM 4.4 mmol/L (3.5-5.1)
[2023-06-15 14:31] LABS: ALBUMIN 2.2 g/dl (3.4-5.0); BLOOD UREA NITROGEN 79.5 mg/dL (7-18); CALCIUM 9.3 mg/dL (8.5-10.1); CO2 25 mmol/L (21-32); GLUCOSE,RANDOM 96 mg/dL (74-106)
[2023-06-15 14:34] LABS: CREATININE 3.1 mg/dL (0.55-1.3); SGPT/ALT 63 U/L (13-61)
[2023-06-15 14:35] LABS: SGOT/AST 116 U/L (15-37)
[2023-06-15 14:36] LABS: BILIRUBIN,TOTAL 0.5 mg/dL (0.2-1); TOT PROT 7.6 g/dl (6.4-8.2)
[2023-06-15 14:37] LABS: ALK PHOS 70 U/L (45-117)
[2023-06-15 14:46] LABS: HEMATOCRIT 36.2 % (35.4-49); HEMOGLOBIN 11.4 GM/dL (11.7-16.9); MCH 31.4 pg (25.7-33.7); MCHC 31.4 g/dl (32.0-35.9); MEAN CELL VOLUME 99.8 fl (80-96); MEAN PLT VOLUME 9.2 fl (7.5-11.1); PLATELET COUNT 267 10^3/uL (134-434); RBC 3.63 M/mm3 (4.00-5.60); RDW 15.8 % (11.9-15.9); WHITE BLOOD COUNT 9.8 K/mm3 (4.0-10.0)
[2023-06-15 14:49] LABS: INR 1.77 (0.83-1.09); PROTHROMBIN TIME (PATIENT) 20.4 SEC (9.7-13.0)
[2023-06-15 14:52] LABS: ACTIVATED PTT 43.2 SECONDS (25.2-36.5)
[2023-06-15 14:56] LABS: EPI CELLS 27 /uL (0-25.1); HYALINE CASTS 6 /uL (0-3.1); URINE APPEARANCE CLOUDY; URINE BILIRUBIN NEGATIVE (NEGATIVE); URINE COLOR YELLOW; URINE GLUCOSE (UA) NEGATIVE (NEGATIVE); URINE KETONE TRACE (NEGATIVE); URINE LEUK ESTERASE NEGATIVE (NEGATIVE); URINE NITRITE NEGATIVE (NEGATIVE); URINE PROTEIN 2+ (NEGATIVE); URINE RBC 18 /uL (0-23.9); URINE UROBILINOGEN 0.2 mg/dL (0.2-1.0); URINE WBC 28 /uL (0-25.8)
[2023-06-15] MEDS ORDERED: PANTOPRAZOLE SODIUM 40 MG VIAL ONE (14:57)
[2023-06-15] MEDS ORDERED: PIPERACILLIN/TAZOB 4.5 GM 4.5 GM/100 ML BAG IVPB ONE (14:58)
[2023-06-15] MEDS ORDERED: VANCOMYCIN 1 GRAM (PRE-DOCKED) 1,000 MG/250 ML BAG IVPB ONE (14:58)
[2023-06-15] MEDS: PIPERACILLIN/TAZOB 4.5 GM 4.5 GM in DEXTROSE 5%-WATER 100 ML IVPB ONE (15:06)
[2023-06-15] MEDS: PANTOPRAZOLE SODIUM 40 MG VIAL IVPUSH ONE (15:13)
[2023-06-15 15:20] LABS: ANISOCYTOSIS 1+; MACROCYTOSIS 0
[2023-06-15 15:24] LABS: ANION GAP 11 mmol/L (4-13); SODIUM 173 mmol/L (136-145)
[2023-06-15 15:31] LABS: URINE BACTERIA 4.8 /uL (0-1359)
[2023-06-15] MEDS: VANCOMYCIN 1,000 MG in DEXTROSE 5%-WATER - 250 ML IVPB ONE (15:35)
[2023-06-15] MEDS: SODIUM CHLORIDE 0.9% 500 ML INFUS.BAG IV ONE (15:35)
[2023-06-15] MEDS: PIPERACILLIN/TAZOB 2.25 GM 2.25 GM in DEXTROSE 5%-WATER - 50 ML IVPB SCH (18:45)
[2023-06-15] MEDS: DEXTROSE 5%-WATER - 1,000 ML IV SCH (19:22)
[2023-06-15] MEDS: PANTOPRAZOLE SODIUM 40 MG VIAL IVPUSH SCH (21:45)
[2023-06-15] MEDS: CHLORHEXIDINE GLUCONATE 4% CLEANSER FOR DECOLONIZATION TP SCH (21:45)
[2023-06-15] MEDS: MUPIROCIN 2% TOPICAL OINTMENT FOR DECOLONIZATION NS SCH (21:45)
[2023-06-15] MEDS: VALPROATE SODIUM INJECTION 125 MG in SODIUM CHLORIDE 100 ML IVPB SCH (21:49)
[2023-06-15] MEDS: ACETAMINOPHEN 1000 MG/100 ML BAG IVPB PRN (21:50)
[2023-06-15] MEDS ORDERED: VALPROATE SODIUM 500 MG/5 ML VIAL IVPB SCH (22:00)
[2023-06-15] MEDS ORDERED: DEXMEDETOMIDINE IN 0.9 % NACL 400 MCG/100 ML BAG IVPB SCH (23:15)
[2023-06-15 23:30] LABS: CHLORIDE 138 mmol/L (98-107); POTASSIUM 4.3 mmol/L (3.5-5.1)
[2023-06-15 23:31] LABS: CALCIUM 8.9 mg/dL (8.5-10.1)
[2023-06-15 23:32] LABS: BLOOD UREA NITROGEN 79.8 mg/dL (7-18); CO2 23 mmol/L (21-32); GLUCOSE,RANDOM 116 mg/dL (74-106)
[2023-06-15 23:33] LABS: ANION GAP 10 mmol/L (4-13); SODIUM 171 mmol/L (136-145)
[2023-06-16] MEDS: LACTATED RINGERS SOLUTION 1000 ML INFUS.BAG IV ONE (00:30)
[2023-06-16] MEDS: DEXMEDETOMIDINE PREMIX 400 MCG/100 ML BAG IVPB SCH (01:12)
[2023-06-16 01:50] LABS: PHOSPHOROUS 4.4 mg/dL (2.5-4.9)
[2023-06-16 01:51] LABS: LDH 514 U/L (87-246)
[2023-06-16 01:56] LABS: HEMATOCRIT 30.4 % (35.4-49); HEMOGLOBIN 9.7 GM/dL (11.7-16.9); MCH 31.8 pg (25.7-33.7); MEAN CELL VOLUME 99.3 fl (80-96); MEAN PLT VOLUME 9.2 fl (7.5-11.1); PLATELET COUNT 206 10^3/uL (134-434); RBC 3.06 M/mm3 (4.00-5.60); RDW 16.3 % (11.9-15.9); WHITE BLOOD COUNT 4.1 K/mm3 (4.0-10.0)
[2023-06-16 02:23] LABS: CHLORIDE 138 mmol/L (98-107); POTASSIUM 3.8 mmol/L (3.5-5.1)
[2023-06-16 03:54] LABS: SODIUM 169 mmol/L (136-145)
[2023-06-16 05:59] LABS: BLOOD UREA NITROGEN 84.8 mg/dL (7-18); CALCIUM 8.3 mg/dL (8.5-10.1)
[2023-06-16 06:00] LABS: GLUCOSE,RANDOM 139 mg/dL (74-106); MAGNESIUM 2.5 mg/dL (1.8-2.4)
[2023-06-16 06:02] LABS: CREATININE 3.2 mg/dL (0.55-1.3)
[2023-06-16 06:03] LABS: PHOSPHOROUS 3.7 mg/dL (2.5-4.9); SGOT/AST 86 U/L (15-37)
[2023-06-16 06:04] LABS: BILIRUBIN,TOTAL 0.6 mg/dL (0.2-1)
[2023-06-16 06:36] LABS: CO2 16 mmol/L (21-32)
[2023-06-16 06:45] LABS: IRON SERUM QNS ug/dL (50-175)
[2023-06-16 06:46] LABS: ALBUMIN QNS g/dl (3.4-5.0); ALK PHOS QNS U/L (45-117); SGPT/ALT QNS U/L (13-61); TOTAL IRON BINDING CAPACITY QNS ug/dL (250-450)
[2023-06-16 07:56] LABS: CHLORIDE 138 mmol/L (98-107); POTASSIUM 4.1 mmol/L (3.5-5.1)
[2023-06-16 07:57] LABS: ALBUMIN 1.6 g/dl (3.4-5.0); BLOOD UREA NITROGEN 81.7 mg/dL (7-18); CALCIUM 8.3 mg/dL (8.5-10.1); CO2 25 mmol/L (21-32); GLUCOSE,RANDOM 140 mg/dL (74-106)
[2023-06-16 08:00] LABS: CREATININE 3.2 mg/dL (0.55-1.3); SGOT/AST 80 U/L (15-37); SGPT/ALT 44 U/L (13-61)
[2023-06-16 08:01] LABS: BILIRUBIN,TOTAL 0.6 mg/dL (0.2-1)
[2023-06-16 08:03] LABS: ALK PHOS 53 U/L (45-117)
[2023-06-16] MEDS: SODIUM CHLORIDE 250 ML IV STA (08:05)
[2023-06-16 08:33] LABS: HEMATOCRIT 29.5 % (35.4-49); HEMOGLOBIN 9.6 GM/dL (11.7-16.9); MCHC 32.3 g/dl (32.0-35.9); MEAN CELL VOLUME 98.9 fl (80-96); MEAN PLT VOLUME 9.3 fl (7.5-11.1); PLATELET COUNT 197 10^3/uL (134-434); RBC 2.99 M/mm3 (4.00-5.60); RDW 16.1 % (11.9-15.9); RETICULOCYTES 0.37 % (0.5-1.5)
[2023-06-16 08:34] LABS: ANION GAP 6 mmol/L (4-13); SODIUM 169 mmol/L (136-145)
[2023-06-16 08:59] LABS: LACTIC ACID 2.5 mmol/L (0.4-2.0)
[2023-06-16] MEDS: SODIUM CHLORIDE 0.9% 500 ML INFUS.BAG IV ONE (10:20)
[2023-06-16 10:23] VITALS: TEMP 97.4
[2023-06-16 10:56] LABS: ANISOCYTOSIS 0; MACROCYTOSIS 0
[2023-06-16] MEDS: PIPERACILLIN/TAZOB 2.25 GM 2.25 GM in DEXTROSE 5%-WATER - 50 ML IVPB SCH (11:09)
[2023-06-16] MEDS: VANCOMYCIN 1,000 MG in DEXTROSE 5%-WATER - 250 ML IVPB SCH (11:14)
[2023-06-16] MEDS ORDERED: MORPHINE 100 MG/100 ML MG ONE (11:42)
[2023-06-16] MEDS: MORPHINE SULFATE/0.9% NACL/PF 100 MG/100 ML BAG IVPB SCH ×2 (11:44→12:28)
[2023-06-16 14:23] VITALS: BP 97/36
[2023-06-16] MEDS ORDERED: VANCOMYCIN/WATER FOR INJ (PEG) 1,000 MG/200 ML BAG IVPB SCH (15:00)
[2023-06-16 18:41] VITALS: PULSE 49; RESP 22
== END 2023-06-16 20:35 | disposition expired | DRG 871 ==
LOC: JER 12:58 → JERBED 16:11 → JICU 16:54
PROVIDERS: ADMIT Internal Medicine Pulmonary Disease; ATTEND Internal Medicine Pulmonary Disease
DX: A41.89 Other specified sepsis (principal); G93.41 Metabolic encephalopathy; J96.01 Acute respiratory failure with hypoxia; J18.9 Pneumonia, unspecified organism; K92.2 Gastrointestinal hemorrhage, unspecified; I24.89 Other forms of acute ischemic heart disease; N17.9 Acute kidney failure, unspecified; I13.0 Hypertensive heart and chronic kidney disease with heart failure and stage 1 through stage 4 chronic kidney disease, or unspecified chronic kidney disease; I50.22 Chronic systolic (congestive) heart failure; K92.0 Hematemesis; E87.0 Hyperosmolality and hypernatremia; E87.20 Acidosis, unspecified; K21.9 Gastro-esophageal reflux disease without esophagitis; I25.10 Atherosclerotic heart disease of native coronary artery without angina pectoris; R65.20 Severe sepsis without septic shock; E78.5 Hyperlipidemia, unspecified; I48.91 Unspecified atrial fibrillation; N18.9 Chronic kidney disease, unspecified; E11.22 Type 2 diabetes mellitus with diabetic chronic kidney disease; F03.90 Unspecified dementia, unspecified severity, without behavioral disturbance, psychotic disturbance, mood disturbance, and anxiety; R50.9 Fever, unspecified; F31.9 Bipolar disorder, unspecified; F20.9 Schizophrenia, unspecified; E86.0 Dehydration; Z95.0 Presence of cardiac pacemaker; Z95.5 Presence of coronary angioplasty implant and graft; Z85.46 Personal history of malignant neoplasm of prostate; Z85.07 Personal history of malignant neoplasm of pancreas
CPT/HCPCS: 0241U-QW; 36415; 71045-TC-FY; 80048; 80053; 81003; 82272; 82550; 82553; 82607; 82728; 82746; 82803; 82962; 83605; 83615; 83735; 84100; 84466; 84484; 85025; 85027; 85045; 85610; 85730; 86850; 86900; 86901; 87040; 87081; 87086; 93005; 93010; 99285-25; J0131